=== PATIENT | male | born 1985 | race Caucasian/White ===

== ENCOUNTER 2018-03-20 16:00 | Emergency (ER) | payer SELFPAY ==
[~2018-03-20] VITALS: Ht 175.3 cm; Wt 80.0 kg
[2018-03-20] MEDS ORDERED: ONDANSETRON HCL 4MG/2ML VIAL IV STA (16:42)
[2018-03-20] MEDS ORDERED: MORPHINE SULFATE 4 MG/ML CPJ (NOT FOR IM USE) IV STA (16:42)
[2018-03-20] MEDS ORDERED: ASPIRIN 81MG TABLET PO STA (16:42)
[2018-03-20] MEDS ORDERED: SODIUM CHLORIDE 0.9% 500 ML IV ONE (16:42)
[2018-03-20 18:31] LABS: BASOPHILS % 0.3 % (0.0-2.0); EOSINOPHILS % 1.1 % (0.0-5.0); HEMATOCRIT. 46.6 % (42.0-52.0); HEMOGLOBIN. 16.6 g/dL (14.0-18.0); LYMPHOCYTES % 30.5 % (20.0-50.0); MEAN CORPUSCULAR HEMOGLOBIN 31.4 pg (28.0-32.0); MEAN CORPUSCULAR VOLUME 88.1 fL (80.0-94.0); MEAN PLATELET VOLUME 7.8 fl (7.4-10.4); MONOCYTES % 7.4 % (2.0-8.0); NEUTROPHILS % 60.7 % (40.0-76.0); PLATELET 357 x1000/uL (130-400); RED BLOOD CELL COUNT 5.29 mill/uL (4.7-6.1); RED CELL DISTRIBUTION WIDTH 12.7 % (11.6-14.6)
[2018-03-20 18:36] LABS: CHLORIDE 103 mEq/L (98-107)
[2018-03-20 18:41] LABS: D-DIMER < 0.19 mg/L FEU (<0.50); INR 1.8; PARTIAL THROMBOPLASTIN TIME 31.6 sec (23.4-31.0); PROTHROMBIN TIME 18.7 sec (9.4-11.6)
[2018-03-20] MEDS ORDERED: IOHEXOL-350 100 ML BOTTLE ONE (19:30)
[2018-03-20 20:15] VITALS: BP 117/75
== END 2018-03-20 20:15 | disposition home or self-care (01) ==
LOC: ER 16:50 → CANBEDREQ 21:22
DX: R07.89 Other chest pain (principal); R25.2 Cramp and spasm; J45.909 Unspecified asthma, uncomplicated; Z88.8 Allergy status to other drugs, medicaments and biological substances; Z87.891 Personal history of nicotine dependence
CPT/HCPCS: 36415; 71045; 71275; 80053; 83690; 83880; 84443; 84484; 85025; 85379; 85610; 85730; 93005; 93970; 96361; 96374; 99285; J2270; J2405; J7040; Q9967